=== PATIENT | male | born 1970 | race Caucasian/White ===

== ENCOUNTER 2021-01-17 10:44 | Emergency (ER) | payer OTHER ==
[~2021-01-17] VITALS: Ht 193 cm; Wt 122.7 kg
[~2021-01-17 10:44] MED LIST: ASPIRIN 81M81 MG/TA2; CARDIZEM CD 12120 MG PO; CENTRUM1 TAB; FLEXERIL 1010 MG/TAB; LEVAQUIN 750MG750 M1 PO; NORCO 325 MG-51 TAB PO; VICODIN 5/5001 UDTAB PO
[2021-01-17 10:54] VITALS: TEMP 98.9
[2021-01-17] MEDS ORDERED: PREDNISONE20 MG PO (12:36)
[2021-01-17] MEDS ORDERED: DOXYCYCLINE 10100 MG PO (12:36)
[2021-01-17 12:42] VITALS: BP 154/104; PULSE 103
== END 2021-01-17 12:42 | disposition home or self-care (01) ==
LOC: COL.ER 10:44
DX: U07.1 COVID-19 (principal); J18.9 Pneumonia, unspecified organism; I10 Essential (primary) hypertension; I25.2 Old myocardial infarction; Z87.891 Personal history of nicotine dependence; Z79.82 Long term (current) use of aspirin; Z79.899 Other long term (current) drug therapy